=== PATIENT | male | born 1975 | race African-American/Black ===

== ENCOUNTER 2021-12-12 23:27 | Emergency (ER) | payer OTHER ==
[2021-12-12 23:44] VITALS: BMI 20.5
[2021-12-13] MEDS ORDERED: ACETAMINOPHEN 500 MG TABLET (FP) PO ONE (05:41)
[2021-12-13] MEDS ORDERED: ACETAMINOPHEN 325 MG TABLET (FP) ONE (05:46)
[2021-12-13 06:47] VITALS: BP 113/83; PULSE 52; TEMP 97.5
== END 2021-12-13 07:45 | disposition home or self-care (01) ==
LOC: JER 23:27
DX: Z46.89 Encounter for fitting and adjustment of other specified devices (principal)
CPT/HCPCS: 73090-TC-RT-FY; 99283-25

== ENCOUNTER 2021-12-13 08:22 | Inpatient (IN) | payer OTHER ==
[2021-12-12] MEDS: METHOCARBAMOL 500 MG TABLET PO PRN (21:34)
[2021-12-12] MEDS: IBUPROFEN 600 MG TABLET (FP) PO PRN (21:34)
[2021-12-12] MEDS: hydrOXYzine PAMOATE 25 MG CAPSULE (FP) PO PRN (21:34)
[~2021-12-13 08:22] MED LIST: ACETAMINOPHEN 325 MG TABLET (FP) PO PRN; BENZOCAINE/MENTHOL (CHLORASEPTIC ) LOZENGE MM PRN; BISMUTH SUBSALICYLATE 524 MG/30 ML PO PRN; DICYCLOMINE HCL 10 MG CAPSULE PO PRN; IBUPROFEN 400 MG TABLET (FP) PO PRN; IBUPROFEN 600 MG TABLET (FP) PO ONE; LOPERAMIDE HCL 2 MG CAPSULE PO PRN; MAG HYDROX/AL HYDROX/SIMETH 30 ML UNIT-DOSE CUP PO PRN; MAGNESIUM CITRATE 300 ML BOTTLE PO PRN; MAGNESIUM HYDROX 2400MG/30ML ORAL SUSPENSION 30 ML CUP PO PRN; METHOCARBAMOL 500 MG TABLET ONE; NICOTINE POLACRILEX 2 MG GUM BUC PRN; ONDANSETRON *ODT* 4 MG TABLET SL PRN; P-EPHED 60MG/TRIPROLIDI 2.5MG TABLET PO PRN; guaiFENesin 200 MG/10 ML 10 ML UNIT-DOSE CUPS PO PRN; hydrOXYzine PAMOATE 25 MG CAPSULE (FP) PO ONE
[2021-12-13] MEDS ORDERED: BUPRENORPHINE HCL 150 MCG, BUPRENORPHINE HCL 75 MCG BC ONE (09:27)
[2021-12-13] MEDS ORDERED: cloNIDine HCL 0.1 MG TABLET PO ONE (09:27)
[2021-12-13] MEDS ORDERED: BUPRENORPHINE HCL 150 MCG, BUPRENORPHINE HCL 75 MCG BC PRN (09:27)
[2021-12-13] MEDS ORDERED: BUPRENORPHINE HCL 75 MCG FILM BC ONE ×2 (09:31→18:53)
[2021-12-13] MEDS ORDERED: METHOCARBAMOL 500 MG TABLET ONE (09:31)
[2021-12-13] MEDS ORDERED: DICYCLOMINE HCL 10 MG CAPSULE ONE (09:31)
[2021-12-13] MEDS ORDERED: BUPRENORPHINE HCL 150 MCG FILM BC ONE ×2 (09:31→18:52)
[2021-12-13] MEDS ORDERED: IBUPROFEN 600 MG TABLET (FP) PO ONE (09:32)
[2021-12-13] MEDS: METHOCARBAMOL 500 MG TABLET PO PRN ×2 (09:33→18:11)
[2021-12-13] MEDS: IBUPROFEN 600 MG TABLET (FP) PO PRN ×2 (09:33→23:15)
[2021-12-13] MEDS: diazePAM 5 MG TABLET PO PRN ×3 (10:07→23:16)
[2021-12-13] MEDS: PRENATAL VITAMINS W/ FOLIC ACID TABLET (FP) PO SCH (11:19)
[2021-12-13] MEDS: MELATONIN 5 MG TABLETS PO SCH ×2 (11:19→23:15)
[2021-12-13] MEDS: NICOTINE 14 MG/24 HOURS TOPICAL PATCH TD SCH (11:19)
[2021-12-13] MEDS: THIAMINE HCL 100 MG TABLET (FP) PO SCH ×2 (11:19→23:14)
[2021-12-13 12:11] LABS: HEMATOCRIT 39.4 % (35.4-49); HEMOGLOBIN 12.2 GM/dL (11.7-16.9); MCH 21.3 pg (25.7-33.7); MCHC 30.9 g/dl (32.0-35.9); MEAN CELL VOLUME 68.9 fl (80-96); MEAN PLT VOLUME 8.3 fl (7.5-11.1); PLATELET COUNT 462 10^3/uL (134-434); RBC 5.72 M/mm3 (4.00-5.60); RDW 15.8 % (11.9-15.9); WHITE BLOOD COUNT 7.9 K/mm3 (4.0-10.0)
[2021-12-13 12:40] LABS: CALCIUM 9.9 mg/dL (8.5-10.1)
[2021-12-13 12:41] LABS: ALBUMIN 3.8 g/dl (3.4-5.0); BLOOD UREA NITROGEN 16.1 mg/dL (7-18)
[2021-12-13 12:46] LABS: BILIRUBIN,TOTAL 0.4 mg/dL (0.2-1); TOT PROT 7.9 g/dl (6.4-8.2)
[2021-12-13] MEDS ORDERED: cloNIDine HCL 0.1 MG TABLET PO PRN (13:27)
[2021-12-13] MEDS: hydrOXYzine PAMOATE 25 MG CAPSULE (FP) PO PRN ×2 (18:10→23:14)
[2021-12-14] MEDS ORDERED: BUPRENORPHINE HCL 150 MCG, BUPRENORPHINE HCL 75 MCG BC PRN
[2021-12-14] MEDS ORDERED: BUPRENORPHINE HCL 150 MCG, BUPRENORPHINE HCL 75 MCG BC SCH (06:00)
[2021-12-14] MEDS ORDERED: BUPRENORPHINE HCL 150 MCG FILM BC ONE ×3 (06:37→21:35)
[2021-12-14] MEDS ORDERED: BUPRENORPHINE HCL 75 MCG FILM BC ONE ×3 (06:38→21:35)
[2021-12-14] MEDS: METHOCARBAMOL 500 MG TABLET PO PRN ×3 (06:42→17:49)
[2021-12-14] MEDS: diazePAM 5 MG TABLET PO PRN ×3 (06:42→18:51)
[2021-12-14] MEDS: PRENATAL VITAMINS W/ FOLIC ACID TABLET (FP) PO SCH (10:22)
[2021-12-14] MEDS: hydrOXYzine PAMOATE 25 MG CAPSULE (FP) PO PRN ×3 (10:22→22:30)
[2021-12-14] MEDS: NICOTINE 14 MG/24 HOURS TOPICAL PATCH TD SCH (10:22)
[2021-12-14] MEDS: IBUPROFEN 600 MG TABLET (FP) PO PRN ×2 (10:24→18:50)
[2021-12-14 11:22] LABS: HIV INTERPRETATION NEGATIVE (NEGATIVE)
[2021-12-14] MEDS ORDERED: BUPRENORPHINE HCL 150 MCG, BUPRENORPHINE HCL 75 MCG BC ONE (22:00)
[2021-12-14] MEDS: THIAMINE HCL 100 MG TABLET (FP) PO SCH (22:34)
[2021-12-14] MEDS: MELATONIN 5 MG TABLETS PO SCH (22:34)
[2021-12-14] MEDS ORDERED: NICOTINE 10 MG CARTRIDGE (INHALER) IH PRN (22:38)
[2021-12-15] MEDS: diazePAM 5 MG TABLET PO PRN ×2 (00:53→06:55)
[2021-12-15] MEDS: IBUPROFEN 600 MG TABLET (FP) PO PRN ×2 (00:54→06:19)
[2021-12-15] MEDS: METHOCARBAMOL 500 MG TABLET PO PRN ×3 (00:54→12:36)
[2021-12-15] MEDS ORDERED: BUPRENORPHINE HCL 450 MCG FILM BC SCH (06:00)
[2021-12-15] MEDS: BUPRENORPHINE HCL 450 MCG FILM BC SCH ×2 (06:18→13:43)
[2021-12-15] MEDS: PRENATAL VITAMINS W/ FOLIC ACID TABLET (FP) PO SCH (10:25)
[2021-12-15] MEDS: hydrOXYzine PAMOATE 25 MG CAPSULE (FP) PO PRN ×2 (10:25→15:06)
[2021-12-15 13:10] VITALS: BP 124/75; PULSE 74; TEMP 97.7
[2021-12-16] MEDS ORDERED: BUPRENORPHINE/NALOXONE 4 MG/1 MG FILM PACKET SL SCH (06:00)
[2021-12-17] MEDS ORDERED: BUPRENORPHINE/NALOXONE 8 MG/2 MG FILM PACKET SL ONE (06:00)
== END 2021-12-15 15:10 | disposition left against medical advice (07) | DRG 894 ==
LOC: YASAS 08:22 → Y6N 09:32 → Y3N 10:37
PROVIDERS: ADMIT Allergy & Immunology; ATTEND Surgery
PROC: HZ2ZZZZ Detoxification Services for Substance Abuse Treatment (ICD-10-PCS; principal; 2021-12-13)
DX: F11.23 Opioid dependence with withdrawal (principal); F17.210 Nicotine dependence, cigarettes, uncomplicated; J45.909 Unspecified asthma, uncomplicated; Y04.0XXA Assault by unarmed brawl or fight, initial encounter; Y93.9 Activity, unspecified; Y92.239 Unspecified place in hospital as the place of occurrence of the external cause; Z56.0 Unemployment, unspecified; Z59.00 Homelessness unspecified
CPT/HCPCS: 36415; 80053; 85027; 86780; 87389; 87811; C9803-CS; J0735; U0003; U0005

== ENCOUNTER 2021-12-15 17:04 | Inpatient (IN) | payer OTHER ==
[2021-12-15 20:12] VITALS: BMI 19.8
[2021-12-16] MEDS ORDERED: LOPERAMIDE HCL 2 MG CAPSULE PO PRN ×2 (01:09→01:15)
[2021-12-16] MEDS ORDERED: MAGNESIUM CITRATE 300 ML BOTTLE PO PRN ×2 (01:09→01:15)
[2021-12-16] MEDS ORDERED: BISMUTH SUBSALICYLATE 524 MG/30 ML PO PRN ×2 (01:09→01:15)
[2021-12-16] MEDS ORDERED: ONDANSETRON *ODT* 4 MG TABLET SL PRN ×2 (01:09→01:15)
[2021-12-16] MEDS ORDERED: MAG HYDROX/AL HYDROX/SIMETH 30 ML UNIT-DOSE CUP PO PRN ×2 (01:09→01:15)
[2021-12-16] MEDS ORDERED: ACETAMINOPHEN 325 MG TABLET (FP) PO PRN ×3 (01:09→01:15)
[2021-12-16] MEDS ORDERED: BENZOCAINE/MENTHOL (CHLORASEPTIC ) LOZENGE MM PRN ×2 (01:09→01:15)
[2021-12-16] MEDS ORDERED: NICOTINE POLACRILEX 2 MG GUM BUC PRN (01:09)
[2021-12-16] MEDS ORDERED: MAGNESIUM HYDROX 2400MG/30ML ORAL SUSPENSION 30 ML CUP PO PRN ×2 (01:09→01:15)
[2021-12-16] MEDS ORDERED: DICYCLOMINE HCL 10 MG CAPSULE PO PRN ×2 (01:09→01:15)
[2021-12-16] MEDS ORDERED: NICOTINE 10 MG CARTRIDGE (INHALER) IH PRN (01:15)
[2021-12-16] MEDS ORDERED: IBUPROFEN 600 MG TABLET (FP) PO PRN (01:15)
[2021-12-16] MEDS ORDERED: hydrOXYzine PAMOATE 25 MG CAPSULE (FP) PO PRN (01:15)
[2021-12-16] MEDS ORDERED: IBUPROFEN 400 MG TABLET (FP) PO PRN (01:15)
[2021-12-16] MEDS ORDERED: METHOCARBAMOL 500 MG TABLET PO PRN (01:15)
[2021-12-16] MEDS ORDERED: IBUPROFEN 400 MG TABLET (FP) PO ONE (01:25)
[2021-12-16] MEDS: METHOCARBAMOL 500 MG TABLET PO PRN ×3 (02:10→15:36)
[2021-12-16] MEDS: hydrOXYzine PAMOATE 25 MG CAPSULE (FP) PO PRN ×4 (02:10→22:28)
[2021-12-16] MEDS: IBUPROFEN 600 MG TABLET (FP) PO PRN ×2 (09:23→22:29)
[2021-12-16] MEDS: PRENATAL VITAMINS W/ FOLIC ACID TABLET (FP) PO SCH (09:24)
[2021-12-16] MEDS: NICOTINE 14 MG/24 HOURS TOPICAL PATCH TD SCH (09:27)
[2021-12-16] MEDS ORDERED: PRENATAL VITAMINS W/ FOLIC ACID TABLET (FP) PO SCH (10:00)
[2021-12-16] MEDS ORDERED: BUPRENORPHINE/NALOXONE 8 MG/2 MG FILM PACKET SL ONE (11:16)
[2021-12-16] MEDS ORDERED: BUPRENORPHINE/NALOXONE 4 MG/1 MG FILM PACKET SL ONE ×2 (11:30→22:00)
[2021-12-16] MEDS: NICOTINE 10 MG CARTRIDGE (INHALER) IH PRN ×2 (15:43→22:32)
[2021-12-16] MEDS ORDERED: THIAMINE HCL 100 MG TABLET (FP) PO SCH (22:00)
[2021-12-16] MEDS ORDERED: MELATONIN 5 MG TABLETS PO SCH ×2 (22:00)
[2021-12-16] MEDS: THIAMINE HCL 100 MG TABLET (FP) PO SCH (22:23)
[2021-12-16] MEDS: SUVOREXANT 10 MG TABLET PO PRN (22:30)
[2021-12-17] MEDS: hydrOXYzine PAMOATE 25 MG CAPSULE (FP) PO PRN ×3 (05:39→22:17)
[2021-12-17] MEDS: IBUPROFEN 400 MG TABLET (FP) PO PRN ×2 (05:40→18:00)
[2021-12-17] MEDS: METHOCARBAMOL 500 MG TABLET PO PRN ×3 (05:40→18:00)
[2021-12-17] MEDS ORDERED: BUPRENORPHINE/NALOXONE 8 MG/2 MG FILM PACKET SL ONE ×2 (06:00→18:00)
[2021-12-17] MEDS: NICOTINE 10 MG CARTRIDGE (INHALER) IH PRN ×2 (08:49→20:35)
[2021-12-17] MEDS: NICOTINE 14 MG/24 HOURS TOPICAL PATCH TD SCH (11:19)
[2021-12-17] MEDS: PRENATAL VITAMINS W/ FOLIC ACID TABLET (FP) PO SCH (11:23)
[2021-12-17] MEDS: THIAMINE HCL 100 MG TABLET (FP) PO SCH (22:17)
[2021-12-17] MEDS: ACETAMINOPHEN 325 MG TABLET (FP) PO PRN (22:17)
[2021-12-17] MEDS: SUVOREXANT 10 MG TABLET PO PRN (22:20)
[2021-12-18] MEDS: hydrOXYzine PAMOATE 25 MG CAPSULE (FP) PO PRN ×2 (05:49→10:19)
[2021-12-18] MEDS: NICOTINE 10 MG CARTRIDGE (INHALER) IH PRN ×3 (05:51→12:21)
[2021-12-18] MEDS: METHOCARBAMOL 500 MG TABLET PO PRN ×2 (05:51→12:19)
[2021-12-18] MEDS ORDERED: BUPRENORPHINE/NALOXONE 8 MG/2 MG FILM PACKET SL ONE (06:00)
[2021-12-18] MEDS: IBUPROFEN 600 MG TABLET (FP) PO PRN ×2 (06:15→12:19)
[2021-12-18 09:35] VITALS: BP 116/65; PULSE 65; TEMP 97.5
[2021-12-18] MEDS: ACETAMINOPHEN 325 MG TABLET (FP) PO PRN (10:16)
[2021-12-18] MEDS: PRENATAL VITAMINS W/ FOLIC ACID TABLET (FP) PO SCH (10:17)
[2021-12-18] MEDS: NICOTINE 14 MG/24 HOURS TOPICAL PATCH TD SCH (10:56)
[2021-12-18 12:14] LABS: BLOOD UREA NITROGEN 14.1 mg/dL (7-18); CALCIUM 9.5 mg/dL (8.5-10.1)
[2021-12-18 12:16] LABS: ALBUMIN 3.5 g/dl (3.4-5.0)
[2021-12-18 12:18] LABS: CREATININE 0.9 mg/dL (0.55-1.3)
[2021-12-18 12:19] LABS: BILIRUBIN,TOTAL 0.5 mg/dL (0.2-1); TOT PROT 6.8 g/dl (6.4-8.2)
[2021-12-18 12:24] LABS: HEMATOCRIT 37.6 % (35.4-49); HEMOGLOBIN 11.7 GM/dL (11.7-16.9); MCH 21.3 pg (25.7-33.7); MCHC 31.1 g/dl (32.0-35.9); MEAN CELL VOLUME 68.4 fl (80-96); MEAN PLT VOLUME 8.1 fl (7.5-11.1); PLATELET COUNT 395 10^3/uL (134-434); RBC 5.49 M/mm3 (4.00-5.60); RDW 16.2 % (11.9-15.9)
[2021-12-18 13:16] LABS: HIV INTERPRETATION NEGATIVE (NEGATIVE)
== END 2021-12-18 12:30 | disposition home or self-care (01) | DRG 897 ==
LOC: YASAS 17:04 → Y6N 12-16 01:34
PROVIDERS: ADMIT Allergy & Immunology; ATTEND Surgery
PROC: HZ2ZZZZ Detoxification Services for Substance Abuse Treatment (ICD-10-PCS; principal; 2021-12-16)
DX: F11.23 Opioid dependence with withdrawal (principal); F19.282 Other psychoactive substance dependence with psychoactive substance-induced sleep disorder; F17.210 Nicotine dependence, cigarettes, uncomplicated; F41.8 Other specified anxiety disorders; F32.A Depression, unspecified; X58.XXXD Exposure to other specified factors, subsequent encounter; S52.591D Other fractures of lower end of right radius, subsequent encounter for closed fracture with routine healing; S22.42XD Multiple fractures of ribs, left side, subsequent encounter for fracture with routine healing; Z56.0 Unemployment, unspecified; Z59.00 Homelessness unspecified
CPT/HCPCS: 36415; 80053; 85027; 86780; 87389